=== PATIENT | female | born 2000 | race Caucasian/White ===

== ENCOUNTER 2025-07-26 23:53 | Emergency (ER) | payer BC, SELFPAY ==
[2025-07-26 23:56] VITALS: BP 142/90
--- NOTE | 2025-07-27 00:42 | ED.GENMED ---
History of Present Illness
General
Chief Complaint: Musculo-Skeletal Complaint
Source: patient and spouse
Exam Limitations: none
Time Seen by Provider: 07/27/25 00:09
Nursing documentation reviewed up to this point in time: agreed with
History of Present Illness
History of Present Illness:
24-year-old female presenting to the emergency department after twisting her right ankle and injuring her foot while walking her dog a few hours prior to arrival. Pain worsening since was able to walk initially. Has noticed some swelling denies
additional injuries otherwise
Review of Systems
Review of Systems
Allergies reviewed?: Yes
All Other Systems: ROS reviewed and negative except as documented in HPI and ROS
Phy Exam
Physical Exam
Physical Exam:
GENERAL: Alert , in no apparent distress
EYE: pupils equal and reactive
NECK: Supple, no significant adenopathy.
ENT: o/p clr, mmm.
CARDIAC: Regular rate and rhythm .
LUNGS: Clear breath sounds bilaterally, no acute respiratory distress, no wheezes/rales/rhonchi
ABDOMEN: Soft, without focal tenderness, no r/g, no cvat
NEUROLOGICAL: Alert and oriented, no focal neuro deficits
SKIN: Warm and dry, skin intact.
MUSCULOSKELETAL: Mild tenderness to palpation to the midfoot laterally on the right side. No pain to the base of the fifth metatarsal no pain to the lateral or medial malleolus no pain to the Achilles or toes no pain throughout the wu or knee,
well perfused.
PSYCH: Normal and appropriate interaction.
Course
Orders/Labs/Results
Orders:
Orders
07/27/25 00:05
CR Foot - Right Min 3 Views Urgent
Reason For Exam: FELL WALKING HER DOG
07/27/25 00:34
Wilian Wrap Right-Treatment ONCE
Crutches-Treatment ONCE
Vital Signs
Initial and Last Documented VS:
Initial Vital Signs
Temp Pulse Resp BP Pulse Ox
98 F 98 18 142/90 98
07/26/25 23:56 07/26/25 23:56 07/26/25 23:56 07/26/25 23:56 07/26/25 23:56
Last Documented Vital Signs
Temp Pulse Resp BP Pulse Ox
98 F 98 18 142/90 98
07/26/25 23:56 07/26/25 23:56 07/26/25 23:56 07/26/25 23:56 07/27/25 00:51
MDM/Problems Addressed
MDM/Problems Addressed:
24-year-old female presenting to the emergency department today with concerns of lateral foot discomfort after twisting her foot while walking her dog. Here there is vague discomfort when palpating. X-ray without signs of fracture patient with
likely sprain patient vies for conservative treatment and follow-up as needed. Return precautions given.
*Pulse Oximetry
SaO2: 98
Oxygen Mode of Delivery: Room air
Patient hypoxic: no (98)
*Critical Care Note
Total Time (30-74mins, 75-104mins- exclusive of procedures): Not Applicable
ED Attending Note
-
Portions of this chart may have been created with voice recognition software.� Occasional wrong word or��sound alike� substitutions may have occurred due to the inherent limitations of voice recognition software.
Discharge Plan
Departure
Patient Disposition: Home (Routine Discharge)
Date of Disposition: 07/27/25
Time of Disposition: 00:49
Patient with high blood pressure during this ER visit?: No
Condition: Good
Covid-19: Not Applicable
Discharge Problem:
Foot sprain
Instructions: Sprain (DC)
Referrals:
Luis Desai DPM [[facility], Podiatry] - Follow up in 5-7 days
Stand Alone Forms: Return to Work
Activity Restrictions/Additional Instructions:
You came to the emergency department today with concerns of foot discomfort. You likely have a sprain. Please rest ice compress and elevate and follow-up closely with the foot doctor as needed. Return for any worsening, new or concerning symptoms.
Interventions
Interventions:
*Risk Screen - Suicide Last Done: 07/26/25 23:56
*General Assessment Last Done: 07/27/25 00:57
*Neglect/Abuse Screening Last Done: 07/26/25 23:56
*ED- Fall Risk Assessment Last Done: 07/27/25 00:57
*ED COVID-19 Vaccine History Last Done: 07/27/25 00:57
*Nursing Disposition Last Done: 07/27/25 00:57
ED-Musculoskeletal Assessment Last Done: 07/27/25 00:50
Discharge Date and Time
Discharge Date/Time: 07/27/25 01:06
Print Language: [employer]INE[employer]
== END 2025-07-27 01:06 | disposition home or self-care (01) ==
LOC: EMR 23:53
PROVIDERS: EMERGENCY PHYSICIAN Emergency Medicine
DX: S93.601A Unspecified sprain of right foot, initial encounter (principal); X50.1XXA Overexertion from prolonged static or awkward postures, initial encounter; Y93.K1 Activity, walking an animal
CPT/HCPCS: 99283; 73630